=== PATIENT | female | born 1975 | race Caucasian/White ===

== ENCOUNTER 2017-04-26 16:44 | Inpatient (IN) | payer SELFPAY ==
[2017-04-26] MEDS ORDERED: NORMAL SALINE 1000 ML 1,000 ML IV PRN (17:29)
[2017-04-26] MEDS ORDERED: DIPHENHYDRAMINE HCL 50 MG/ML VIAL IV ONE (17:30)
[2017-04-26] MEDS ORDERED: METOCLOPRAMIDE HCL INJ/PF 10 MG/2 ML SDV IV ONE (17:30)
--- NOTE | 2017-04-26 17:31 | ER Document Report ---
ED General - General Stated Complaint: WEAKNESS Time Seen by Provider: 04/26/17 17:18 Mode of Arrival: Stretcher Information source: Patient Notes: This is a 41-year-old female that presents to the emergency room with nausea, vomiting, diarrhea since this morning. The patient states she started not feeling well 2 days ago. Patient denies fever. Patient states her normal blood pressure is 90/60. I have reviewed her old medicines: She is on nothing now. She does state that she was on Suboxone in the past because of opiate withdrawal from Percocet. She denies any history of IV drug abuse. She denies any exposure to anyone with hepatitis. - HPI Onset: Just prior to arrival Onset/Duration: Gradual Quality of pain: No pain, Dull Severity: Moderate Pain Level: 2 Associated symptoms: Diarrhea, Nausea, Vomiting. denies: Chest pain, Fever, Shortness of breath Exacerbated by: Denies Relieved by: Denies Similar symptoms previously: No Recently seen / treated by doctor: No - Related Data Allergies/Adverse Reactions: latex [Latex] Allergy (Unknown, Verified 04/26/17 21:12) Past Medical History - General Information source: Patient - Social History Smoking Status: Current Every Day Smoker Cigarette use (# per day): Yes Chew tobacco use (# tins/day): No Smoking Education Provided: No Frequency of alcohol use: Occasional Drug Abuse: None. denies: Cocaine, Heroin, Methamphetamine Lives with: Alone Family History: None Patient has suicidal ideation: No Patient has homicidal ideation: No - Past Medical History Cardiac Medical History: Reports: None Pulmonary Medical History: Reports: Hx Asthma Musculoskeltal Medical History: Reports Hx Arthritis Psychiatric Medical History: Reports: Hx Bipolar Disorder, Hx Depression Past Surgical History: Reports: Other - Ruptured ectopic - Immunizations Hx Diphtheria, Pertussis, Tetanus Vaccination: Yes - 2008 Review of Systems - Review of Systems Constitutional: denies: Chills, Fever EENT: No symptoms reported Cardiovascular: No symptoms reported Respiratory: No symptoms reported Gastrointestinal: See HPI Genitourinary: No symptoms reported Female Genitourinary: No symptoms reported Musculoskeletal: No symptoms reported Skin: No symptoms reported Hematologic/Lymphatic: No symptoms reported Neurological/Psychological: No symptoms reported Physical Exam - Vital signs Vitals: Resp Pulse Ox 15 99 04/26/17 17:04 04/26/17 17:04 Notes: Physical exam: GENERAL: 41-year-old female, alert and oriented 3, appears uncomfortable HEAD: Atraumatic, normocephalic. EYES: Pupils equal round and reactive to light, extraocular movements intact, sclera anicteric, conjunctiva are normal. ENT: TMs normal, nares patent, oropharynx clear without exudates. Moist mucous membranes. NECK: Normal range of motion, supple without obvious mass or JVD. LUNGS: Breath sounds clear to auscultation bilaterally and equal. No wheezes rales or rhonchi. HEART: Regular rate and rhythm without murmurs, rubs or gallops. ABDOMEN: Soft, mild abdominal tenderness diffusely, no guarding, no rebound. No masses appreciated. EXTREMITIES: Normal range of motion, no pitting or edema. No clubbing or cyanosis. NEUROLOGICAL: Cranial nerves II through XII grossly intact. Normal speech, moving all extremities. PSYCH: Normal mood, normal affect. SKIN: Warm, Dry, normal turgor, no rashes or lesions noted. Course - Re-evaluation Re-evalutation: The patient was treated with IV fluids, IV ceftriaxone (given positive UTI). Patient was given anti-emetics. Her liver enzymes were elevated, so an abdominal ultrasound was performed which showed a thickened gallbladder wall with edema concerning for cholecystitis. 04/26/17 22:46 I discussed the case with Dr. Mcdonnell who has evaluated the patient and is agreed to admit the patient onto his service. - Vital Signs Vital signs: Temp Pulse Resp BP Pulse Ox 19 94/63 L 100 04/26/17 22:11 04/26/17 22:11 04/26/17 22:11 - Laboratory Result Diagrams: 04/26/17 17:45 04/26/17 17:45 Laboratory results interpreted by me: 04/26/17 04/26/17 04/26/17 17:44 17:45 17:45 MCH 26.4 L RDW 19.6 H Plt Count 132 L Band Neutrophils % 23 H Lymphocytes % (Manual) 3 L Monocytes % (Manual) 0 L Abs Neuts (Manual) 8.5 H Abs Lymphs (Manual) 0.3 L Abs Monocytes (Manual) 0.0 L PT Calcium 7.8 L Total Bilirubin 1.4 H Direct Bilirubin 0.8 H AST 706 H ALT 451 H Alkaline Phosphatase 155 H Total Protein 5.5 L Albumin 2.8 L Urine Protein >=500 H Urine Ketones TRACE H Urine Bilirubin SMALL H Urine Urobilinogen 2.0 H Ur Leukocyte Esterase SMALL H Urine Ascorbic Acid 20 H 04/26/17 17:45 MCH RDW Plt Count Band Neutrophils % Lymphocytes % (Manual) Monocytes % (Manual) Abs Neuts (Manual) Abs Lymphs (Manual) Abs Monocytes (Manual) PT 16.1 H Calcium Total Bilirubin Direct Bilirubin AST ALT Alkaline Phosphatase Total Protein Albumin Urine Protein Urine Ketones Urine Bilirubin Urine Urobilinogen Ur Leukocyte Esterase Urine Ascorbic Acid - Diagnostic Test Radiology reviewed: Image reviewed, Reports reviewed - Ultrasound shows thickened gallbladder wall concerning for acute cholecystitis. Discharge - Discharge Clinical Impression: Acute cholecystitis Condition: Stable Disposition: ADMITTED INPATIENT Admitting Provider: Surgicalist - Dr Martinez Unit Admitted: Surgical Floor
[2017-04-26 18:00] LABS: AMORPHOUS SEDIMENT,URINE TRACE /HPF; APPEARANCE,URINE TURBID; BILIRUBIN,URINE SMALL (NEGATIVE); GLUCOSE, URINE NEGATIVE (NEGATIVE); KETONES,URINE TRACE mg/dL (NEGATIVE); LEUKOCYTE ESTERASE,URINE SMALL (NEGATIVE); NITRITE,URINE NEGATIVE (NEGATIVE); PROTEIN,URINE >=500 mg/dL (NEGATIVE); URINE SPECIFIC GRAVITY 1.033
[2017-04-26 18:23] LABS: ALANINE AMINOTRANSFERASE 451 U/L (9-52); ALBUMIN 2.8 g/dL (3.5-5.0); ALKALINE PHOSPHATASE 155 U/L (38-126); ANION GAP 8 (5-19); ASPARTATE AMINO TRANSFERASE 706 U/L (14-36); BILIRUBIN,DIRECT 0.8 mg/dL (0.0-0.4); BILIRUBIN,TOTAL 1.4 mg/dL (0.2-1.3); BLOOD UREA NITROGEN 15 mg/dL (7-20); CALCIUM 7.8 mg/dL (8.4-10.2); CARBON DIOXIDE 25 mmol/L (22-30); CHLORIDE 106 mmol/L (98-107); CREATININE RESULT 0.73 mg/dL (0.52-1.25); GLUCOSE 107 mg/dL (75-110); POTASSIUM 3.7 mmol/L (3.6-5.0); SODIUM 139.4 mmol/L (137-145); TOTAL PROTEIN 5.5 g/dL (6.3-8.2)
[2017-04-26 18:37] LABS: HEMATOCRIT 37.8 % (36.0-47.0); HEMOGLOBIN 12.5 g/dL (12.0-15.5); HGB HCT DIFFERENCE -0.3; MEAN CORPUSCULAR HEMOGLOBIN 26.4 pg (27.0-33.4); MEAN CORPUSCULAR HGB CONC 33.1 g/dL (32.0-36.0); MEAN CORPUSCULAR VOLUME 80 fl (80-97); RED BLOOD COUNT 4.75 10^6/uL (3.72-5.28); RED CELL DISTRIBUTION WIDTH 19.6 % (11.5-14.0); WHITE BLOOD COUNT 8.8 10^3/uL (4.0-10.5)
[2017-04-26 18:40] LABS: BASOPHILS % (MANUAL) 0 % (0-2); EOSINOPHILS % (MANUAL) 0 % (0-6); LYMPHOCYTES % (MANUAL) 3 % (13-45); TOTAL CELLS COUNTED 100
[2017-04-26 18:41] LABS: ANISOCYTOSIS 1+; HYPOCHROMASIA 1+; MICROCYTOSIS SLIGHT; POLYCHROMASIA SLIGHT
[2017-04-26 18:42] LABS: BAND NEUTROPHILS % (MANUAL) 23 % (3-5); OVALOCYTES SLIGHT; PLATELET CLUMPS PRESENT; POIKILOCYTOSIS SLIGHT
--- NOTE | 2017-04-26 18:42 | RADIOLOGY REPORT (SQ) ---
EXAM DESCRIPTION: CHEST PA/LAT COMPLETED DATE/TIME: 04/26/2017 6:30 pm REASON FOR STUDY: cough COMPARISON: None. NUMBER OF VIEWS: Two view. TECHNIQUE: Frontal and lateral radiographic views of the chest acquired. LIMITATIONS: None. FINDINGS: LUNGS AND PLEURA: Peribronchial cuffing and interstitial changes. No consolidation, effus ion, or pneumothorax. MEDIASTINUM AND HILAR STRUCTURES: No masses. No contour abnormalities. HEART AND VASCULAR STRUCTURES: Heart normal in size and contour. No evidence for failure. BONES: No acute findings. HARDWARE: None in the chest. OTHER: No other significant finding. IMPRESSION: REACTIVE AIRWAY DISEASE VERSUS VIRAL SYNDROME. NO CONSOLIDATION. TECHNICAL DOCUMENTATION: JOB ID: [id number] [employer]- All Rights Reserved
[2017-04-26] MEDS ORDERED: CEFTRIAXONE 1 GM/D5W RTU 1 GM/50 ML RTUPB IV ONE (19:30)
--- NOTE | 2017-04-26 20:25 | RADIOLOGY REPORT (SQ) ---
EXAM DESCRIPTION: U/S ABDOMEN LIMITED W/O DOP COMPLETED DATE/TIME: 04/26/2017 8:11 pm REASON FOR STUDY: elevated lfts, r/o g disease COMPARISON: None. TECHNIQUE: Dynamic and static grayscale images acquired of the abdomen and recorded on PACS. Davido porfirio selected color Doppler and spectral images recorded. LIMITATIONS: None. FINDINGS: PANCREAS: No masses. Visualized pancreatic duct normal caliber. LIVER: No masses. Echotexture normal. LIVER VASCULATURE: Normal directional flow of the main portal vein and hepatic veins. GALLBLADDER: No stones. Right upper quadrant and gallbladder fossa free fluid with gallbladder wall t hickening concerning for acute cholecystitis.. ULTRASOUND-DETECTED HUTCHINS'S SIGN: Negative. INTRAHEPATIC DUCTS AND COMMON DUCT: CBD and intrahepatic ducts normal caliber. No filling defects. INFERIOR VENA CAVA: Normal flow. AORTA: No aneurysm. RIGHT KIDNEY: Normal size. Normal echogenicity. No solid or suspicious masses. No hydronephrosis. No calcifications. PERITONEAL AND RIGHT PLEURAL SPACE: Right upper quadrant ascites. No effusion identified. OTHER: No other significant findings. IMPRESSION: Right upper quadrant and gallbladder fossa free fluid with gallbladder wall thickening c oncerning for acute cholecystitis. TECHNICAL DOCUMENTATION: JOB ID: [id number] [employer]- All Rights Reserved
[2017-04-26] MEDS ORDERED: CALCIUM GLUCONATE 1000 MG/10 ML INJ IV ONE (21:33)
[2017-04-26] MEDS ORDERED: RINGERS SOLUTION,LACTATED 1,000 ML IV PRN (22:12)
[2017-04-26 22:17] LABS: PROTHROMBIN TIME 16.1 SEC (11.4-15.4)
[2017-04-26 22:24] LABS: URINE BARBITURATES SCREEN NEGATIVE; URINE METHADONE SCREEN NEGATIVE; URINE OPIATES LOW NEGATIVE; URINE PHENCYCLIDINE SCREEN NEGATIVE
--- NOTE | 2017-04-26 22:26 | PDOC H&P ---
History of Present Illness Admission Date/PCP: JOHNIE GUZMAN MD History of Present Illness: LUIS WONG is a 41 year old female who presents emergency department complaining of acute onset abdominal pain. Yesterday patient started feeling poorly and had decreased p.o. intake. Patient had epigastric pain today, anorexia, nausea vomiting, and one episode of loose stools. She denies similar episodes, or history of gastrointestinal problems. She does not know her complete family history. She was seen in the emergency department where she was found to have abdominal tenderness. Gallbladder ultrasound revealed findings consistent with acute cholecystitis. Her liver function studies were elevated. Surgery was consulted and she was advised admission. Of note upon entry into the emergency department her systolic blood pressure was 88 and her heart rate was over 100. Clinically she had signs of sepsis. She has been given 2 L of fluids and her vital signs are stabilized. Past Medical History Pulmonary Medical History: Reports: Asthma Musculoskeltal Medical History: Reports: Arthritis Psychiatric Medical History: Reports: Bipolar Disorder, Depression Hematology: Reports: Anemia Past Surgical History Past Surgical History: Reports: Other - section in the right salpingectomy for ectopic Social History Smoking Status: Current Every Day Smoker Hx Prescription Drug Abuse: No Family History Parental Family History Reviewed: No - Unknown Children Family History Reviewed: Unknown Sibling(s) Family History Reviewed.: Unknown Medication/Allergy Home Medications: Buprenorphine HCl/Naloxone HCl [Suboxone 2 mg-0.5 mg Sl Film] 0.5 film SL DAILY 04/30/14 Ibuprofen [Motrin 800 mg Tablet] 800 mg PO Q6 #30 tablet 05/01/14 Oxycodone HCl/Acetaminophen [Percocet 5-325 mg Tablet] 1 tab PO Q4HP PRN #30 tablet 05/01/14 Vit#96/Ferrous Fum/FA [ Tablet] 1 each PO DAILY #60 05/01/14 Allergies/Adverse Reactions: latex [Latex] Allergy (Unknown, Verified 04/26/17 21:12) Review of Systems Eyes: ABSENT: visual disturbances Ears: ABSENT: hearing changes Cardiovascular: ABSENT: chest pain, dyspnea on exertion, edema, orthropnea, palpitations Respiratory: ABSENT: cough, hemoptysis Gastrointestinal: PRESENT: as per HPI Genitourinary: PRESENT: as per HPI. ABSENT: dysuria, hematuria Neurological: ABSENT: abnormal gait, abnormal speech, confusion, dizziness, focal weakness, syncope Hematologic/Lymphatic: ABSENT: easy bleeding, easy bruising Physical Exam Vital Signs: Temp Pulse Resp BP Pulse Ox 19 94/63 L 100 04/26/17 22:11 04/26/17 22:11 04/26/17 22:11 General appearance: PRESENT: disheveled, mild distress, other - Unit fingernails are dirty Head exam: PRESENT: normocephalic Eye exam: PRESENT: EOMI Ear exam: PRESENT: normal external ear exam Teeth exam: PRESENT: poor dentation Neck exam: PRESENT: full ROM Respiratory exam: PRESENT: rhonchi Cardiovascular exam: PRESENT: RRR Pulses: PRESENT: +2 pedal pulses bilateral GI/Abdominal exam: PRESENT: diminished bowel sounds, other - Abdomen is general Extremities exam: PRESENT: full ROM Psychiatric exam: PRESENT: anxious Results Laboratory Results: 04/26/17 17:45 04/26/17 17:45 04/26/17 04/26/17 04/26/17 17:44 17:45 17:45 WBC 8.8 RBC 4.75 Hgb 12.5 Hct 37.8 MCV 80 MCH 26.4 L MCHC 33.1 RDW 19.6 H Plt Count 132 L Seg Neutrophils % Not Reportable Lymphocytes % Not Reportable Monocytes % Not Reportable Eosinophils % Not Reportable Basophils % Not Reportable Absolute Neutrophils Not Reportable Absolute Lymphocytes Not Reportable Absolute Monocytes Not Reportable Absolute Eosinophils Not Reportable Absolute Basophils Not Reportable Sodium 139.4 Potassium 3.7 Chloride 106 Carbon Dioxide 25 Anion Gap 8 BUN 15 Creatinine 0.73 Est GFR ( Amer) > 60 Est GFR (Non-Af Amer) > 60 Glucose 107 Calcium 7.8 L Total Bilirubin 1.4 H AST 706 H ALT 451 H Alkaline Phosphatase 155 H Total Protein 5.5 L Albumin 2.8 L Urine Color MARTINE Urine Appearance TURBID Urine pH 7.0 Ur Specific [place] 1.033 Urine Protein >=500 H Urine Glucose (UA) NEGATIVE Urine Ketones TRACE H Urine Blood NEGATIVE Urine Nitrite NEGATIVE Ur Leukocyte Esterase SMALL H Urine WBC (Auto) 78 Urine RBC (Auto) 85 Impressions: Chest X-Ray 04/26/17 17:30 IMPRESSION: REACTIVE AIRWAY DISEASE VERSUS VIRAL SYNDROME. NO CONSOLIDATION. Abdomen Ultrasound 04/26/17 19:29 IMPRESSION: Right upper quadrant and gallbladder fossa free fluid with gallbladder wall thickening concerning for acute cholecystitis. Assessment & Plan - Diagnosis (1) Acute cholecystitis Is this a current diagnosis for this admission?: Yes Plan: Based on clinical history, physical exam findings, abnormal liver function studies and gallbladder ultrasonography, acute cholecystitis is the opined diagnosis. Therefore we will: 1. Admit, keep n.p.o., IV fluids, intravenous antibiotics 2. Repeat liver function studies in the morning, check lipase and coagulation profile file 3. Anticipate interval laparoscopic cholecystectomy. 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 (6) Elevated LFTs Is this a current diagnosis for this admission?: Yes Plan: Likely related to acute cholecystitis, however acute hepatitis may be confounding the patient's clinical picture. Plan: 1. Agree with checking hepatitis panel 2. We will pursue further history of possible substance abuse. - Time Time Spent: 50 to 70 Minutes Critical Time spent with patient: 15-24 minutes Medications reviewed and adjusted accordingly: Yes Anticipated discharge: Home Within: within 48 hours - Inpatient Certification Based on my medical assessment, after consideration of the patient's comorbidities, presenting symptoms, or acuity I expect that the services needed warrant INPATIENT care.: Yes Medical Necessity: Need For IV Fluids, Need for Pain Control, Need for IV Antibiotics, Need for Surgery
[2017-04-27] MEDS: MORPHINE SULFATE 10 MG/ML INJ IV PRN ×3 (00:07→11:15)
[2017-04-27] MEDS: ONDANSETRON HCL INJ/PF 4 MG/2 ML SDV IV PRN ×3 (00:07→11:15)
[2017-04-27] MEDS: CEFAZOLIN 1 GM/D5W RTU 1 GM/50 ML RTUPB IV SCH ×3 (02:11→18:21)
[2017-04-27] MEDS ORDERED: NORMAL SALINE 1000 ML 1,000 ML IV ONE (06:00)
[2017-04-27 06:44] LABS: PROTHROMBIN TIME 17.1 SEC (11.4-15.4)
[2017-04-27 06:48] LABS: ALANINE AMINOTRANSFERASE 310 U/L (9-52); ALBUMIN 2.4 g/dL (3.5-5.0); ALKALINE PHOSPHATASE 123 U/L (38-126); ASPARTATE AMINO TRANSFERASE 274 U/L (14-36); BILIRUBIN,DIRECT 0.6 mg/dL (0.0-0.4); BILIRUBIN,TOTAL 1.1 mg/dL (0.2-1.3)
[2017-04-27] MEDS ORDERED: NEOSTIGMINE METHYLSULFATE 10 MG/10 ML VIAL ONE (09:50)
[2017-04-27] MEDS ORDERED: GLYCOPYRROLATE INJ 0.4 MG/2 ML VIAL ONE (09:50)
[2017-04-27] MEDS ORDERED: ROCURONIUM BROMIDE INJ 50 MG/5 ML VIAL IV ONE (09:50)
[2017-04-27] MEDS ORDERED: NICOTINE 21 MG/24 HR PATCH.TD24 TD SCH (10:00)
--- NOTE | 2017-04-27 10:27 | PDOC PROGRESS REPORT ---
Subjective Progress Note for:: 04/27/17 Subjective:: Patient feeling better, took a shower this morning. Physical Exam Vital Signs: Temp Pulse Resp BP Pulse Ox 98.2 F 91 16 94/52 L 100 04/27/17 04:05 04/27/17 04:05 04/27/17 04:05 04/27/17 06:30 04/27/17 04:05 Intake & Output 04/26/17 04/27/17 04/28/17 06:59 06:59 06:59 Intake Total 300 Output Total 800 Balance -500 Weight 61.6 kg General appearance: PRESENT: no acute distress GI/Abdominal exam: PRESENT: other - Much soft, nontender. Results Laboratory Results: 04/26/17 04/27/17 22:35 06:27 Total Bilirubin 1.1 AST 274 H ALT 310 H Alkaline Phosphatase 123 Total Protein 5.0 L Albumin 2.4 L Lipase 16.8 L Impressions: Chest X-Ray 04/26/17 17:30 IMPRESSION: REACTIVE AIRWAY DISEASE VERSUS VIRAL SYNDROME. NO CONSOLIDATION. Abdomen Ultrasound 04/26/17 19:29 IMPRESSION: Right upper quadrant and gallbladder fossa free fluid with gallbladder wall thickening concerning for acute cholecystitis. Assessment & Plan - Diagnosis (1) Acute cholecystitis Is this a current diagnosis for this admission?: Yes Plan: Hospital day 1, clinically improving with IV fluids n.p.o. and intravenous antibiotics. Patient's toxicology profile was unremarkable. Patient's hepatitis screen is pending. Believe the patient will benefit from interval cholecystectomy as described in note from 04/26/2017. I described the plan for laparoscopic, possible open cholecystectomy, with a thorough description of the wrist benefits and alternatives including bleeding, infection, bile duct injury, need for drain, need for additional surgery. Also discussed postoperative timeline and care. (2) Malnutrition Qualifiers: Protein-calorie malnutrition severity: moderate Is this a current diagnosis for this admission?: Yes (3) Smoker Is this a current diagnosis for this admission?: Yes (4) Sepsis associated hypotension Is this a current diagnosis for this admission?: Yes (5) Substance abuse Is this a current diagnosis for this admission?: Yes (6) Elevated LFTs Is this a current diagnosis for this admission?: Yes
[2017-04-27] MEDS ORDERED: NICOTINE 21 MG/24 HR PATCH.TD24 TD ONE (11:15)
[2017-04-27] MEDS ORDERED: BUPIVACAINE HCL 0.25 % INJ/PF (2.5 MG/1 ML) 30 ML VIAL ONE (12:57)
[2017-04-27] MEDS ORDERED: FENTANYL CITRATE INJ/PF 250 MCG/5 ML AMPULE ONE (13:03)
[2017-04-27] MEDS ORDERED: MIDAZOLAM 2 MG/2 ML INJ ONE (13:03)
[2017-04-27] MEDS ORDERED: PROPOFOL INJ 200 MG/20 ML VIAL IV ONE (13:03)
[2017-04-27] MEDS ORDERED: LIDOCAINE 2% INJ-PF (20 MG/ML) 10 ML AMPUL ONE (13:03)
[2017-04-27] MEDS ORDERED: ONDANSETRON HCL INJ/PF 4 MG/2 ML SDV ONE (13:03)
[2017-04-27] MEDS ORDERED: OXYCODONE-ACETAMINOPHEN 5-325 MG TABLET PO PRN ×2 (13:45)
[2017-04-27] MEDS ORDERED: MORPHINE SULFATE 10 MG/ML INJ IV PRN (13:45)
[2017-04-27] MEDS ORDERED: MEPERIDINE HCL/PF INJ 25 MG/1 ML DISP.SYRIN IV PRN (13:45)
[2017-04-27] MEDS ORDERED: PROMETHAZINE HCL INJ 25 MG/1 ML VIAL IV PRN ×2 (13:45)
[2017-04-27] MEDS ORDERED: DIPHENHYDRAMINE HCL 50 MG/ML VIAL IV PRN (13:45)
[2017-04-27] MEDS ORDERED: FENTANYL CITRATE INJ/PF 100 MCG/2 ML AMPUL IV PRN ×3 (13:45)
[2017-04-27] MEDS ORDERED: ONDANSETRON HCL INJ/PF 4 MG/2 ML SDV IV PRN ×2 (14:00→14:34)
--- NOTE | 2017-04-27 14:31 | Operative Report ---
Operative Report DATE OF SURGERY: 04/27/17 PREOPERATIVE DIAGNOSIS: Acute cholecystitis POSTOPERATIVE DIAGNOSIS: Same OPERATION: Laparoscopic cholecystectomy SURGEON: RICKIE OZUNA ANESTHESIA: GA TISSUE REMOVED OR ALTERED: 1 gallbladder COMPLICATIONS: None ESTIMATED BLOOD LOSS: Scant INTRAOPERATIVE FINDINGS: See below PROCEDURE: The patient was taken to the preop holding area the main operating room and general anesthesia was the abdomen was exposed, prepped and draped in sterile fashion and some descent of laparoscopic cholecystectomy. Surgical plan and surgical timeout were conducted Skin was any status of quarter percent Marcaine above the umbilicus. Small incision was made with 15 blade vertically oriented and a Veress needle inserted the peritoneal cavity pneumoperitoneum established. Veress needle removed, and a 5 mm ports inserted a 5 mm flexible scope was inserted. Under direct visualization 3 additional ports were placed one in the subxiphoid and 2 in the subcostal position Findings are significant for no evidence of vascular or visceral injury to any structures upon port entry. There is a mild to moderate amount of bile stained peritoneal fluid around the liver. The gallbladder was acutely distended and edematous. Photos were taken. The liver appeared grossly normal without any macro nodularity. The gallbladder was aspirated approximately 40 cc of bile. It was grasped from the fundus and infundibulum and reflected over the liver bed. The neck of the gallbladder its junction with the cystic duct as well as the cystic artery and the node of [place] low were all dissected out beautifully. [place] of [place] low was visualized beautifully. Photos taken. Critical view obtained. The cystic duct was clipped 3 times proximally once distally divided with scissors. The cystic artery was surrounded with a right angle clamp, clipped twice proximally once distally and divided with scissors. The gallbladder was removed from the liver bed using hook cautery resection. Again moderate to severe amount of edema. Visualization was excellent. Gallbladder removed freely and brought to the patient to the supraumbilical port site. Specimen sent to pathology We returned the peritoneal cavity check for bleeding there was none. Sponge and needle counts correct. All ports removed under direct visualization pneumoperitoneum evacuated wounds closed with 3-0 Vicryl benzoin and Steri- Strips. Patient tolerated procedure well extubated and taken recovery in stable condition. Juan dictating.
[2017-04-27] MEDS ORDERED: KETOROLAC TROMETHAMINE 10 MG TABLET PO PRN (14:34)
[2017-04-27] MEDS: FENTANYL CITRATE INJ/PF 100 MCG/2 ML AMPUL ONE ×3 (14:35→15:00)
[2017-04-27 14:37] LABS: PATH REVIEW PATHOLOGIST REVIEWED
[2017-04-27] MEDS: OXYCODONE-ACETAMINOPHEN 5-325 MG TABLET PO PRN (18:26)
[2017-04-28] MEDS: CEFAZOLIN 1 GM/D5W RTU 1 GM/50 ML RTUPB IV SCH ×2 (02:32→09:52)
[2017-04-28] MEDS: MORPHINE SULFATE 10 MG/ML INJ IV PRN (02:35)
[2017-04-28] MEDS: OXYCODONE-ACETAMINOPHEN 5-325 MG TABLET PO PRN ×2 (06:45→12:34)
[2017-04-28] MEDS ORDERED: NICOTINE 21 MG/24 HR PATCH.TD24 TD SCH (10:00)
[2017-04-28 13:47] VITALS: BP 121/62
--- NOTE | 2017-05-14 08:12 | DISCHARGE SUMMARY E ---
Discharge Summary NAME: LUIS WONG : 1975 AGE: 41Y ADMITTED: 04/26/2017 DISCHARGED: 04/28/2017 FINAL DIAGNOSIS: Acute cholecystitis. PROCEDURES DONE: Laparoscopic cholecystectomy on 04/27/2017, done by Dr. Martinez. HOSPITAL COURSE: This is a 41-year-old female who complained of right upper quadrant pains. Ultrasound of the gallbladder on 04/26/2017 showed gallbladder wall thickening with free fluid at the gallbladder fossa. Her LFTs were elevated, but the next day they were trending down and almost normal with alkaline phosphatase actually normal. The patient then underwent laparoscopic cholecystectomy on 04/27/[address] Martinez and everything went well. The next day, on 04/28/2017, the patient was doing well, tolerating a regular diet and subsequently discharged on 04/28/2017 with the final diagnosis of acute cholecystitis. The patient is to be followed up in the surgical clinic by Dr. Martinez. The patient was advised not to do any heavy lifting for the next week until seen in the clinic. The patient also allowed to have a regular diet. DICTATING PHYSICIAN: MARYJANE DICKSON M.D. [id number] PHY#: [id number] ID: [id number] JOB#: [id number] ACCT: [id number] cc:Dano DELATORRE M.D. >
== END 2017-04-28 13:30 | disposition home or self-care (01) | DRG 418 ==
LOC: ER 16:44 → EH 22:10 → UNDOADMIN 22:18 → EH 22:18 → 4S 23:54
PROVIDERS: ADMIT Surgery; ATTEND Surgery
PROC: 0FT44ZZ Resection of Gallbladder, Percutaneous Endoscopic Approach (ICD-10-PCS; principal; 2017-04-27 13:15)
DX: K81.0 Acute cholecystitis (principal); E44.0 Moderate protein-calorie malnutrition; J45.909 Unspecified asthma, uncomplicated; M19.90 Unspecified osteoarthritis, unspecified site; F31.9 Bipolar disorder, unspecified; D64.9 Anemia, unspecified; F17.210 Nicotine dependence, cigarettes, uncomplicated; I95.9 Hypotension, unspecified; F19.10 Other psychoactive substance abuse, uncomplicated; Z68.23 Body mass index [BMI] 23.0-23.9, adult; Z79.899 Other long term (current) drug therapy; Z91.040 Latex allergy status
CPT/HCPCS: 36415; 71020; 76705; 790; 80053; 80074; 80076; 80307; 81001; 83690; 85025; 85610; 87040; 87077; 87086; 88304; 96361; 96365; 96375; 99285; J0610; J0690; J0696; J1200; J2250; J2270; J2405; J2704; J2765; J3010; J3490; J7030; J7120